=== PATIENT | male | born 1960 | race Caucasian/White ===

== ENCOUNTER 2024-04-23 06:36 | Emergency (ER) | payer OTHER, SELFPAY ==
[2024-04-23 06:49] VITALS: BP 138/90
[2024-04-23 07:00] VITALS: BP 122/84
[2024-04-23 07:23] VITALS: BMI 28.2
--- NOTE | 2024-04-23 07:30 | ED.GENMED ---
History of Present Illness
General
Chief Complaint: Chest Pain
Source: patient and family
Exam Limitations: none
Time Seen by Provider: 04/23/24 07:06
Nursing documentation reviewed up to this point in time: agreed with
History of Present Illness
History of Present Illness:
63-year-old male presenting to the emergency department today with concerns of chest discomfort to the left side of his chest that seems to be worse when laying on his left side described as a pressure seems to be worse when sleeping and laying flat
otherwise improves when he rolls to his right and is improved throughout the day. Has no associated shortness of breath nausea vomiting or diaphoresis. Denies any recent leg swelling recent trauma surgery immobilization, blood clots estrogen
product usage is a daily smoker.
Review of Systems
Review of Systems
Allergies reviewed?: Yes
All Other Systems: ROS reviewed and negative except as documented in HPI and ROS
Phy Exam
Physical Exam
Physical Exam:
GENERAL: Alert , in no apparent distress
EYE: pupils equal and reactive
NECK: Supple, no significant adenopathy.
ENT: o/p clr, mmm.
CARDIAC: Regular rate and rhythm .
LUNGS: Clear breath sounds bilaterally, no acute respiratory distress, no wheezes/rales/rhonchi
ABDOMEN: Soft, without focal tenderness, no r/g, no cvat
NEUROLOGICAL: Alert and oriented, no focal neuro deficits
SKIN: Warm and dry, skin intact.
MUSCULOSKELETAL: No edema, well perfused.
PSYCH: Normal and appropriate interaction.
Scores
Heart Score for Chest Pain Patients
STEMI patient?: No
History: Slightly or Non-Suspicious
ECG: Normal
Age: >45 - <65 years
Risk Factors: 1 or 2 Risk Factors
Troponin: </= Normal Limit
Heart Score for Chest Pain Patients: 2
Heart Score Risk: 2.5% MACE over next 6 weeks
Course
Orders/Labs/Results
Orders:
Orders
04/23/24 06:38
Electrocardiogram (*1) Urgent
Reason for Study: Chest Pain
EKG- Treatment ONCE
04/23/24 07:07
Chest [CR Chest - 2 Views ] Urgent
Comment:
Reason For Exam: left chest pain
04/23/24 07:28
Complete Blood Count/With Diff Urgent
Comprehensive Metabolic Panel Urgent
Troponin I Urgent
Abnormal Lab Results
04/23/24
07:28
MCH 31.3 H pg
(27.0-31.0)
MPV 11.1 H fL
(7.4-10.4)
Lymphocytes % 15.5 L %
(20.5-51.1)
Glucose 105 H mg/dl
(70-99)
Total Protein 6.1 L g/dl
(6.3-8.2)
04/23/24 07:28
04/23/24 07:28
Vital Signs
Initial and Last Documented VS:
Initial Vital Signs
Pulse Resp BP Pulse Ox
69 15 138/90 98
04/23/24 06:49 04/23/24 06:49 04/23/24 06:49 04/23/24 06:49
Last Documented Vital Signs
Pulse Resp BP Pulse Ox
58 14 115/79 96
04/23/24 09:00 04/23/24 09:00 04/23/24 09:00 04/23/24 09:00
MDM/Problems Addressed
MDM/Problems Addressed:
63-year-old male presenting to the emergency department with concerns of left-sided chest discomfort made worse when laying on his left side no associated shortness of breath nausea vomiting or diaphoresis. Here patient well-appearing with normal
EKG. Chest x-ray without emergent findings . Reproducible chest discomfor sounds unlikely be consistent with ACS at this time does not sound consistent with other emergent pathology as well. Low risk for PE with no risk factors normal vital
signs. X-ray normal troponin negative show does not sound consistent with likely ACS stable for close outpatient follow-up return precautions given.
*Critical Care Note
Total Time (30-74mins, 75-104mins- exclusive of procedures): Not Applicable
ED Attending Note
-
Portions of this chart may have been created with voice recognition software.� Occasional wrong word or��sound alike� substitutions may have occurred due to the inherent limitations of voice recognition software.
Discharge Plan
Departure
Patient Disposition: Home (Routine Discharge)
Date of Disposition: 04/23/24
Time of Disposition: 09:33
Patient with high blood pressure during this ER visit?: No
Condition: Good
Covid-19: Not Applicable
Discharge Problem:
Chest pain
Instructions: Chest Pain CBC Follow Up
Referrals:
NONE,* [Family Provider] -
Activity Restrictions/Additional Instructions:
You came to the emergency department today with concerns of chest discomfort. Here you had a reassuring assessment. Please follow closely with a primary care doctor and cardiology. Return for any worsening, new or concerning symptoms.
Interventions
Interventions:
*Risk Screen - Suicide Last Done: 04/23/24 06:41
*General Assessment Last Done: 04/23/24 07:23
*Neglect/Abuse Screening Last Done: 04/23/24 06:41
ED- Fall Risk Assessment Last Done: 04/23/24 07:23
*ED COVID-19 Vaccine History Last Done: 04/23/24 07:23
ED- Cardiac Assessment Last Done: 04/23/24 07:23
Discharge Date and Time
Print Language: TELUGU
[2024-04-23 07:44] LABS: % Basophils 0.8 % (0-2); % Eosinophils 2.1 % (0-6); % Immature Granulocytes 0.4 % (0-0.5); % Lymphocytes 15.5 % (20.5-51.1); % Monocytes 6.3 % (1.7-9.3); % Neutrophils 74.9 % (42.2-75.2); Absolute Basophils 0.1 10^3/uL (0-0.2); Absolute Eosinophils 0.2 10^3/uL (0-0.7); Absolute Lymphocytes 1.2 10^3/uL (1.2-3.4); Absolute Monocytes 0.5 10^3/uL (0.1-0.6); Absolute Neutrophils 5.7 10^3/uL (1.4-6.5); Hematocrit 47.9 % (39.0-52.0); Hemoglobin 16.4 g/dL (13.0-18.0); Mean Corp Hgb Conc. 34.2 g/dL (33.0-37.0); Mean Corpuscular Hgb 31.3 pg (27.0-31.0); Mean Corpuscular Volume 91.4 fL (80.0-94.0); Mean Platelet Volume 11.1 fL (7.4-10.4); Nucleated Red Blood Cells % 0 % (-); Platelet Count 199 10^3/uL (130-400); Red Blood Cell Count 5.24 10^6/uL (4.70-6.10); Red Cell Dist. Width 13.2 % (11.5-14.5); White Blood Cell Count 7.6 10^3/uL (4.8-10.8)
[2024-04-23 08:00] VITALS: BP 127/88
[2024-04-23 08:04] LABS: ALT (SGPT) 33 U/L (0-50); AST (SGOT) 24 U/L (17-59); Alkaline Phosphatase 78 U/L (38-126); Blood Urea Nitrogen 10 mg/dl (9-20); Calcium 8.8 mg/dl (8.4-10.2); Carbon Dioxide 24 mmol/L (22-30); Chloride 105 mmol/L (98-107); Estimated Creatinine Clearance 98 ml/min; Glucose 105 mg/dl (70-99); Potassium 4.3 mmol/L (3.5-5.1); Sodium 138 mmol/L (135-145); Total Bilirubin 0.7 mg/dl (0.2-1.3); Total Protein 6.1 g/dl (6.3-8.2); eGFR > 60.00
[2024-04-23 08:14] LABS: Troponin I 0.012 ng/ml
[2024-04-23 09:00] VITALS: BP 115/79
== END 2024-04-23 09:55 | disposition home or self-care (01) ==
LOC: EMR 06:36
PROVIDERS: EMERGENCY PHYSICIAN Emergency Medicine
DX: R07.89 Other chest pain (principal)
CPT/HCPCS: 99285; 71046; 80053; 84484; 85025; 93005

== ENCOUNTER → 2024-06-05 07:01 | Outpatient (REF) | payer OTHER, SELFPAY | LOC: HWRCS 07:01 | PROVIDERS: ATTENDING PHYSICIAN Internal Medicine Cardiovascular Disease; FAMILY PHYSICIAN Family Medicine | DX: R07.89 Other chest pain (principal) | CPT/HCPCS: 93306 ==